=== PATIENT | female | born 1995 | race Two or more races ===

== ENCOUNTER 2019-08-18 19:18 | Emergency (ER) | payer MEDICAID, SELFPAY ==
[~2019-08-18] VITALS: Ht 162.6 cm; Wt 80.8 kg
[2019-08-18 19:21] VITALS: BP 132/81
--- NOTE | 2019-08-18 19:26 | NUR ---
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
[2019-08-18] MEDS ORDERED: LORazepam 1MG TABLET ONE (20:09)
[2019-08-18] MEDS ORDERED: KETOROLAC 30 MG/1 ML ONE (20:09)
[2019-08-18 20:29] LABS: BASOPHILS # (AUTO) 0.04 x10^3/uL (0-0.1); BASOPHILS % (AUTO) 0 % (0-1); EOSINOPHILS % (AUTO) 2 % (1-7); LYMPHOCYTES # (AUTO) 2.43 x10^3/uL (1-3.4); LYMPHOCYTES % (AUTO) 22 % (22-44); MD NO; MEAN CORPUSCULAR HEMOGLOBIN 29.2 pg (27.0-34.8); MEAN CORPUSCULAR HGB CONC 33.2 g/dL (32.4-35.8); MEAN CORPUSCULAR VOLUME 88.1 fL (80-100); MEAN PLATELET VOLUME 7.5 fL (7.4-10.4); MONOCYTES # (AUTO) 0.63 x10^3/uL (0.2-0.8); MONOCYTES % (AUTO) 6 % (2-9); NEUTROPHILS # (AUTO) 7.91 x10^3/uL (1.8-6.8); NEUTROPHILS % (AUTO) 71 % (42-75); PLATELET COUNT 416 x10^3/uL (130-400); RED BLOOD COUNT 4.67 x10^6/uL (3.82-5.3); RED CELL DISTRIBUTION WIDTH 13.8 % (9.6-15.2)
[2019-08-18] MEDS ORDERED: KETOROLAC 30 MG/1 ML IVPush ONE (20:30)
[2019-08-18] MEDS ORDERED: LORazepam 1MG TABLET PO ONE (20:30)
[2019-08-18 20:39] LABS: ANION GAP 6 mmol/L (5-15); CHLORIDE 108 mmol/L (98-107); CREATININE 0.78 mg/dL (0.55-1.02)
== END 2019-08-18 22:08 | disposition home or self-care (01) ==
LOC: ED 21:35
DX: R07.89 Other chest pain (principal); R06.02 Shortness of breath; R94.31 Abnormal electrocardiogram [ECG] [EKG]
CPT/HCPCS: 36415; 71045; 80048; 82040; 84703; 85025; 85379; 93005; 96374; 99285; J1885